=== PATIENT | female | born 2000 | race Caucasian/White ===

== ENCOUNTER → 2021-08-07 | Outpatient (CLI) | payer MEDICAID ==
[~2021-08-07] MED LIST: GADOTERATE 0.5 MMOL/ML (CLARISCAN) 15 ML VIAL IV ONE
--- NOTE | 2021-08-07 15:10 | Diagnostic Imaging Report ---
INDICATION: Followup abnormal findings within the left femur. EXAMINATION: MRI of the left lower extremity with and without contrast on 08/07/2021. COMPARISON: Outside MRI dated 06/19/2018 from [facility]. FINDINGS: Again seen is a predominantly T1 and T2 hypointense lesion abutting the posterior medial aspect of the mid femoral diaphysis. Measurements are similar to the previous exam, currently measuring 7.7 cm in cranial to caudal dimension and 1.1 x 0.7 cm on axial imaging. There is no cortical disruption. There is no surrounding soft tissue component. The remaining visualized osseous structures appear stable and unremarkable. There is no associated enhancement. Minimal adjacent overlying T2 hyperintensity is seen anterior to the lesion, stable from previous imaging. The visualized soft tissues are within normal limits. The visualized tendons are intact. The opposite visualized extremity is unremarkable. IMPRESSION: Stable predominantly hypointense lesion abutting the posterior medial cortex of the mid and distal femoral diaphysis. 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 This could be followed with radiographs to assure stability as clinically indicated. Dictated by: Dictated on workstation # [id number]
== END ==
LOC: EDBD 08:45 → RAD 08:45
PROVIDERS: ATTEND Pediatrics
DX: D49.2 Neoplasm of unspecified behavior of bone, soft tissue, and skin (principal); M86.8X5 Other osteomyelitis, thigh
CPT/HCPCS: 73720

== ENCOUNTER → 2021-11-28 | Outpatient (CLI) | payer MEDICAID ==
--- NOTE | 2021-11-28 10:46 | Diagnostic Imaging Report ---
PROCEDURE: US OB SINGLE FETUS <14 WKS. TECHNIQUE: Multiple real-time grayscale images were obtained over the gravid uterus in various projections. INDICATION: Reported subchorionic hematoma Intrauterine gestational sac is present with pole demonstrating crown-rump length of 2.2 cm. Embryonic cardiac activity is present with a rate of 172 bpm. There is an approximately 3.5 x 1.9 x 0.9 cm anechoic region adjacent to the gestational sac which likely represents implantation/subchorionic bleed. This involves less than 25% of gestational sac surface area. There is no evidence of maternal adnexal region abnormality. IMPRESSION: Intrauterine gestation with estimated age of 8 weeks and 6 days. Sonographic EDC is 07/04/2022. There is an approximately 3.5 x 1.9 x 0.9 cm subchorionic fluid collection which likely represents hematoma. This could be further assessed with short-term follow-up study to document stability and exclude enlargement. Dictated by: Dictated on workstation # [id number]
== END ==
LOC: RAD 10:00
PROVIDERS: ATTEND Obstetrics & Gynecology
DX: O46.8X1 Other antepartum hemorrhage, first trimester (principal); Z3A.08 8 weeks gestation of pregnancy
CPT/HCPCS: 76801

== ENCOUNTER → 2022-02-14 | Outpatient (CLI) | payer MEDICAID ==
--- NOTE | 2022-02-14 11:51 | Diagnostic Imaging Report ---
INDICATION: survey. TECHNIQUE: Multiple real-time grayscale images were obtained over the gravid uterus. COMPARISON: 11/28/2021. FINDINGS: There is a single live fetus in a cephalic presentation. heart rate was recorded at 142 bpm. Placenta is posterior and low-lying. Placental tip to the internal cervical os is approximately 3.2 cm. Amniotic fluid volume is normal. There does appear to be some funneling of the cervix, raising question of cervical incompetence. kidneys, bladder and stomach are unremarkable. brain is unremarkable. There is a 4 chamber heart. There is a three-vessel cord with normal insertion. spine is unremarkable. Biometrical measurements are as follows: Biparietal 4.81 cm, age 20 weeks 4 days. Head circumference 17.72 cm, age 20 weeks 2 days. Abdominal circumference 14.98 cm, age 20 weeks 2 days. Femur length 3.16 cm, age 19 weeks 6 days. Sonographic estimate age: 20 weeks 2 days. Sonographic estimated date of delivery: 07/02/2022. Estimated Weight: 331 gm (+/- 49 gm). LMP percentile: 21%. heart rate: 142 beats per minute. number: 1 of 1. IMPRESSION: 1. Single live IUP 20 weeks 2 days gestational age demonstrating normal interval growth when compared with prior exam. 2. Low-lying posterior placenta. 3. There does appear to be some cervical funneling, suggestive of cervical incompetence. Dictated by: Dictated on workstation # [id number]
== END ==
LOC: RAD 09:44
PROVIDERS: ATTEND Nurse Practitioner Women's Health
DX: O44.42 Low lying placenta NOS or without hemorrhage, second trimester (principal); Z3A.20 20 weeks gestation of pregnancy
CPT/HCPCS: 76805

== ENCOUNTER → 2022-02-18 | Outpatient (CLI) | payer MEDICAID ==
--- NOTE | 2022-02-18 16:44 | Diagnostic Imaging Report ---
INDICATION: Followup cervical length. Low-lying placenta. TECHNIQUE: Multiple real-time grayscale images were obtained over the gravid uterus. COMPARISON: 02/14/2022 FINDINGS: The cervix measures 3.8 cm in length and is closed. The placenta is posterior in position and the inferior tip of the placenta is 6 cm from the internal cervical os. The placenta cord originates from its cranial margin. Fetus is in cephalic presentation. Heart rate is 150 bpm. IMPRESSION: 1. Cervical length of 3.8 cm and there is no appreciable funneling. 2. No placenta previa. Dictated by: Dictated on workstation # [id number]
== END ==
LOC: RAD 12:45
PROVIDERS: ATTEND Obstetrics & Gynecology
DX: Z36.86 Encounter for antenatal screening for cervical length (principal)
CPT/HCPCS: 76816

== ENCOUNTER 2022-06-27 22:37 | Outpatient (CLI) | payer OTHER, MEDICAID ==
[~2022-06-27] VITALS: Ht 160 cm; Wt 66.3 kg
[2022-06-27 22:55] VITALS: BP 108/70
[2022-06-27 23:15] LABS: BACTERIA,URINE TRACE /HPF; BILIRUBIN,URINE NEGATIVE (NEGATIVE); CLARITY,URINE CLEAR; COLOR,URINE YELLOW; GLUCOSE, URINE (UA) NEGATIVE (NEGATIVE); KETONES,URINE NEGATIVE (NEGATIVE); LEUKOCYTE ESTERASE ,URINE NEGATIVE (NEGATIVE); NITRITE,URINE NEGATIVE (NEGATIVE); PROTEIN,URINE NEGATIVE (NEGATIVE); WBC,URINE 0-2 /HPF
[2022-06-27 23:25] VITALS: BP 105/60
[2022-06-27] MEDS ORDERED: PANT20TA18 PO (23:28)
[2022-06-27] MEDS ORDERED: PNV1TABL9 PO (23:28)
[2022-06-27] MEDS ORDERED: DOXY1TAB8 PO (23:28)
[2022-06-27 23:36] VITALS: BP 103/62
--- NOTE | 2022-06-28 09:54 | OB Triage Report ---
Standard Progress Note Progress Notes/Assess & Plan Date Seen by a Provider: Jun 27, 2022 Time Seen by a Provider: 23:48 Expected Date of Delivery: Jun 30, 2022 Gestational Age in Weeks: 39 Gestational Age in Days: 4 LMP/DOMINGO Comment: EDC 06/30/22. EGA 39 4/7 weeks Progress/Assessment & Plan [employer] Staff Technical Services Manager: Patient is @ 39 4/7 weeks who presented to L&D 06/27/22 in the evening for labor check. Cervix unchanged per RN at FT/long. Category I FHR tracing regular uterine contractions palpated as moderate. UA negative. VSS/AF. Patient released to home with routine labor/SROM and [facility]KC precautions. A/P: #1 39 weeks, contractions, not in labor -Home with routine labor precautions -Tylenol and Benadryl prn pain/insomnia -Follow up routine OB as scheduled, on L&D sooner prn. Final Diagnosis #1 39 weeks, Contractions, not in labor. LINDA ANAND DO Jun 28, 2022 09:54
== END 2022-06-27 23:48 | disposition home or self-care (01) ==
LOC: WSo 22:37 → LDRP 22:37 → WSo 23:48
PROVIDERS: ATTEND Obstetrics & Gynecology
DX: O47.1 False labor at or after 37 completed weeks of gestation (principal); Z3A.39 39 weeks gestation of pregnancy
CPT/HCPCS: 81000

== ENCOUNTER 2022-06-29 02:05 | Inpatient (IN) | payer OTHER, MEDICAID ==
[2022-06-29] VITALS (14 sets, daily range): BP systolic 94–137; BP diastolic 58–88
[~2022-06-29] VITALS: Ht 160 cm; Wt 65.8 kg
[~2022-06-29 02:05] MED LIST changes: +DOXY1TAB8 PO; -GADOTERATE 0.5 MMOL/ML (CLARISCAN) 15 ML VIAL IV ONE; +PANT20TA18 PO; +PNV1TABL9 PO
[2022-06-29] MEDS ORDERED: MINERAL OIL 30 ML UDC TOP PRN (02:45)
[2022-06-29] MEDS ORDERED: D5 LR IV SOLUTION 1,000 ML IV SCH (02:45)
[2022-06-29 02:47] LABS: BASOPHILS % (AUTO) 0 % (0-10); EOSINOPHILS % (AUTO) 0 % (0-10); HEMATOCRIT 37 % (35-52); HEMOGLOBIN 12.4 g/dL (11.5-16.0); LYMPHOCYTES # (AUTO) 2.3 10^3/uL (1.0-4.0); LYMPHOCYTES % (AUTO) 12 % (12-44); MEAN CORPUSCULAR HEMOGLOBIN 27 pg (25-34); MEAN CORPUSCULAR HGB CONC 33 g/dL (32-36); MEAN CORPUSCULAR VOLUME 82 fL (80-99); MEAN PLATELET VOLUME 11.9 fL (9.0-12.2); MONOCYTES % (AUTO) 5 % (0-12); NEUTROPHILS # (AUTO) 15.6 10^3/uL (1.8-7.8); NEUTROPHILS % (AUTO) 82 % (42-75); PLATELET COUNT 240 10^3/uL (130-400)
[2022-06-29] MEDS ORDERED: OXYTOCIN PRE-MIX DRIP 500 ML IV ONE ×3 (02:47→05:30)
[2022-06-29] MEDS ORDERED: D5 LR IV SOLUTION 1,000 ML IV ONE (02:48)
[2022-06-29] MEDS ORDERED: fentaNYL 2 mcg/ml BUPIVA 0.125 0 ML ONE (02:58)
[2022-06-29] MEDS ORDERED: NS (IVPB) 0 ML ONE (02:58)
[2022-06-29] MEDS ORDERED: LIDOCAINE 1% INJ 20 ML VIAL ONE (03:21)
[2022-06-29] MEDS ORDERED: BENZOCAINE/MENTHOL (DERMOPLAST) 56 ML CAN TP PRN (04:15)
[2022-06-29] MEDS ORDERED: NALOXONE 0.4 MG/ML 1 ML (NARCAN) VIAL IV PRN (04:15)
[2022-06-29] MEDS ORDERED: WITCH HAZEL(TUCKS) 40 EA JAR TOP PRN (04:15)
--- NOTE | 2022-06-29 04:28 | History & Physical-OB ---
OB - Chief Complaint & HPI Date/Time Date of Admission: Date of Admission: Jun 29, 2022 at 02:46 Date seen by a Provider: Jun 29, 2022 Time Seen by a Provider: 01:55 Chief Complaint/History OB-Reason for Admission/Chief: Onset of Labor Hx : 1 Hx Para: 0 Hx Last Menstrual Period: 09/23/21 Expected Date of Delivery: Jun 30, 2022 Gestational Age in Weeks: 39 Gestational Age in Days: 6 Admission Nurse Assessment Rev: No Other 22 y.o. EDC 06/30/22 @ 39 6/7 weeks admitted in advanced labor with cervical dilation at 7-8 cm at time of admission around 0230. Patient with SROM clear at 0155. Patient went on to have uncomplicated (see delivery note). PNC: MSAFP multiple markers negative, GERD (Protonix) PMH: Neg PSH: Neg SHx: Neg for smoking/ETOH/Rx/STI Meds: APAP, Protonix during NKDA ROS negative for all major systems (HEENT, CV, Respiratory, GI/, Skin, MN/NM) LABS: MBT B POS PNAS NEG VDRL NR HIV NR GC/CT NEG X 2 RUBELLA IMMUNE TSH WNL AT 1.88 HCV NEG 1 HR GLUCOLA 129 GBS NEG Allergies and Home Medications Allergies Coded Allergies: No Known Drug Allergies (Unverified , 08/07/21) Patient Home Medication List Home Medication List Reviewed: Yes Doxylamine Succinate/Vit B6 (Doxylamine-Pyridoxine 10-10 mg) 10 Mg-10 Mg T ablet., 1 EACH PO, (Reported) Entered as Reported by: BIANCA BOO on 06/27/222327 Pantoprazole Sodium (Pantoprazole Sodium) 20 Mg Tablet.dr, 20 MG PO DAILY, (Reported) Entered as Reported by: BIANCA BOO on 06/27/222327 Pnv Cmb#21/Iron/Folic Acid ( Complete Caplet) 14 Mg Iron-400 Mcg Tablet, 1 EACH PO, (Reported) Entered as Reported by: BIANCA BOO on 06/27/222327 OB - History Hx of Present Care: Yes Patient Past Medical History see HPI Social History/Family History 2nd Hand Smoke Exposure: No OB - Admission Exam Physical Exam HEENT: TMs Normal Heart: Rhythm Normal Lungs: Clear Abdomen: Gravid Extremities: Normal Reflexes: Normal Cervical Dilatation: 10cm Effacement: 100% Station: +2 Membranes: Ruptured Amniotic Fluid: Clear Heart Rate: 140's Accelerations: Accelerations Present Decelerations: No Decelerations Short Term Variability: Present Mcc Variability: Average (6-25) Contractions on Admission: < 5 Minutes Apart Frequency of Contractions: Q2-3 MINUTES Duration: 1 MINUTE Intensity: Firm Labs Laboratory Tests Test 06/29/22 02:30 Range/Units White Blood Count 19.0 H 4.3-11.0 10^3/uL Red Blood Count 4.57 3.80-5.11 10^6/uL Hemoglobin 12.4 11.5-16.0 g/dL Hematocrit 37 35-52 % Mean Corpuscular Volume 82 80-99 fL Mean Corpuscular Hemoglobin 27 25-34 pg Mean Corpuscular Hemoglobin Concent 33 32-36 g/dL Red Cell Distribution Width 13.0 10.0-14.5 % Platelet Count 240 130-400 10^3/uL Mean Platelet Volume 11.9 9.0-12.2 fL Immature Granulocyte % (Auto) 0 % Neutrophils (%) (Auto) 82 H 42-75 % Lymphocytes (%) (Auto) 12 12-44 % Monocytes (%) (Auto) 5 0-12 % Eosinophils (%) (Auto) 0 0-10 % Basophils (%) (Auto) 0 0-10 % Neutrophils # (Auto) 15.6 H 1.8-7.8 10^3/uL Lymphocytes # (Auto) 2.3 1.0-4.0 10^3/uL Monocytes # (Auto) 1.0 0.0-1.0 10^3/uL Eosinophils # (Auto) 0.0 0.0-0.3 10^3/uL Basophils # (Auto) 0.0 0.0-0.1 10^3/uL Immature Granulocyte # (Auto) 0.1 0.0-0.1 10^3/uL OB - Assessment/Plan/Diagnosis Assessment Assessment: active labor Admission Dx #1: 39 WEEKS, ACTIVE LABOR -Routine orders Admission Status: Inpatient Order (span 2 midnights) Reason for Inpatient Admission: Labor at term Plan Plan: Expectant Management LINDA ANAND DO Jun 29, 2022 04:28
--- NOTE | 2022-06-29 04:44 | OB Labor & Delivery Record ---
Vag Delivery Note Vag Delivery Note Date of Delivery: 06/29/22 Preoperative Diagnosis: Awa Jung is a (22 /Para 1 / 0,Gestational Age (wks)39with [] Postoperative Diagnosis: Same Surgeon: LINDA ANAND Bottle Hop: [] Anesthesia: [] Delivery Type: [] Findings: [] Viable [] , apgars [], weight [] Lacerations: Intact placenta with 3 vessel cord. No nuchal cord, body cord or shoulder dystocia Cytotec 800 mcg placed for hemorrhage prophylaxis Estimated Blood Loss: [] ml Complications: None Condition: Stable Description of Procedure: The patient is a 22 year old female who presented []. She was admitted and informed consent was obtained. Her labor course was remarkable for [] She progressed to complete dilatation and began to push. She was then set up for delivery. The infant's head was delivered atraumatically in the [] position. The shoulders and remainder of the 's body were then delivered without difficulty. Upon delivery, the head was held below the level of the perineum and the mouth and nares were bulb suctioned. The cord was doubly clamped and cut and the was handed off to the pediatric staff. An intact placenta with 3-vessel cord delivered via Gil and there was found to be minimal bleeding.~ Vigorous fundal massage was performed and the fundus was found to be firm. IV oxytocin was given. Examination of the vagina and perineum revealed a [] laceration repaired in the usual fashion with 3-0 vicryl suture. Following the repair, sponge, instrument and needle counts were correct. Mom and baby were both in stable condition in the labor suite. Vitals - Labs Vital Signs - I&O DELIVERY NOTE: COMPLETE: 0258 BABY: 0332 PLACENTA: 0335 Lacerations: 1st degree perineal laceration EBL: 300 ML Findings: Delivery productive of viable male infant born at 0332 hours with 8/9 Comments: After baby delivered, placed on maternal abdomen, delayed cord clamp and cut at 1 minute. IV Pitocin rapid infusion started. Placenta delivered spontaneously and intact. canal inspected and cervix, and perirethral area free of lacerations. 1st degree perineal laceration repaired with 3-0 Vicryl in layers in routine fashion. Uterus massaged multiple times during period and firm. All sponge counts correct. Mother and baby doing well. Labs Laboratory Tests 06/29/22 02:30: White Blood Count 19.0H, Red Blood Count 4.57, Hemoglobin 12.4, Hematocrit 37, Mean Corpuscular Volume 82, Mean Corpuscular Hemoglobin 27, Mean Corpuscular Hemoglobin Concent 33, Red Cell Distribution Width 13.0, Platelet Count 240, Mean Platelet Volume 11.9, Immature Granulocyte % (Auto) 0, Neutrophils (%) (Auto) 82H, Lymphocytes (%) (Auto) 12, Monocytes (%) (Auto) 5, Eosinophils (%) (Auto) 0, Basophils (%) (Auto) 0, Neutrophils # (Auto) 15.6H, Lymphocytes # (Auto) 2.3, Monocytes # (Auto) 1.0, Eosinophils # (Auto) 0.0, Basophils # (Auto) 0.0, Immature Granulocyte # (Auto) 0.1 LINDA ANAND DO Jun 29, 2022 04:44
[2022-06-29] MEDS ORDERED: OXYTOCIN PRE-MIX DRIP 500 ML IV SCH ×2 (05:15)
[2022-06-29] MEDS ORDERED: LIDOCAINE 1% INJ 20 ML VIAL INJ ONE (05:15)
[2022-06-29] MEDS: ACETAMINOPHEN 500 MG TAB (TYLENOL) PO SCH ×3 (05:19→23:16)
[2022-06-29] MEDS ORDERED: CATHETER FLUSH 10 ML SYR IV SCH ×2 (06:00)
[2022-06-29] MEDS: IBUPROFEN 600 MG (MOTRIN) TAB PO PRN ×3 (06:36→21:28)
--- NOTE | 2022-06-29 19:17 | Short Stay Summary ---
Discharge Summary Hospital Course Was the Problem List Reviewed?: Yes Problems/Dx: (1) Uterine contractions Status: Resolved Assessment & Plan: Patient doing well evening of delivery. No complaints, tolerating diet, ambulating, and denies heavy bleeding. EBL from delivery only 300 ML. Declines any discharge meds. Will follow up with Dr. Constantino 6 weeks . Final Diagnosis: State Hospital Course Date of Admission: Jun 29, 2022 at 02:46 Admission Diagnosis : Family Physician/Provider: Anirudh Roberson DO Date of Discharge: 06/29/22 Discharge Diagnosis: [Contractions, state ] Hospital Course: [ Patient admitted in advanced labor at 7-8 cm dilation, delivered 06/29/22 at 0332 hours viable male with 8/9 over first degree perineal lacera tion. EBL 300 ML. Uncomplicated course. Will follow up with Dr. Constantino 6 weeks .] Labs and Pending Lab Test: Laboratory Tests 06/29/22 02:30: White Blood Count 19.0H, Red Blood Count 4.57, Hemoglobin 12.4, Hematocrit 37, Mean Corpuscular Volume 82, Mean Corpuscular Hemoglobin 27, Mean Corpuscular Hemoglobin Concent 33, Red Cell Distribution Width 13.0, Platelet Count 240, Mean Platelet Volume 11.9, Immature Granulocyte % (Auto) 0, Neutrophils (%) (Auto) 82H, Lymphocytes (%) (Auto) 12, Monocytes (%) (Auto) 5, Eosinophils (%) (Auto) 0, Basophils (%) (Auto) 0, Neutrophils # (Auto) 15.6H, Lymphocytes # (Auto) 2.3, Monocytes # (Auto) 1.0, Eosinophils # (Auto) 0.0, Basophils # (Auto) 0.0, Immature Granulocyte # (Auto) 0.1, Syphilis Serology [Pending] Home Meds Active Reported Doxylamine-Pyridoxine 10-10 mg (Doxylamine Succinate/Vit B6) 10 Mg-10 Mg Tablet.dr 1 Each PO Pantoprazole Sodium 20 Mg Tablet.dr 20 Mg PO DAILY Complete Caplet (Pnv Cmb#21/Iron/Folic Acid) 14 Mg Iron-400 Mcg Tablet 1 Each PO Assessment/Pt Instructions Follow up with Dr. Constantino 6 weeks . Vaginal rest x 6 weeks. Discharge Instructions Discharge Diet: No Restrictions Activity as Tolerated: Yes Discharge Physical Examination General Appearance: Alert, Oriented X3 HEENT: Mucous Memb Moist/Hustler Cardiovascular: Regular Rate Abdominal: No Tenderness Skin: No Rashes Neuro: Normal Gait Psych/Mental Status: Mental Status NL Allergies: Coded Allergies: No Known Drug Allergies (Unverified , 08/07/21) Discharge Summary Date of Admission Jun 29, 2022 at 02:46 Date of Discharge 06/30/22 Discharge Date: Jun 30, 2022 Discharge Time: 09:00 Admission Diagnosis Contractions Term Consults/Procedures Consulations None Procedures Spontaneous vaginal delivery Discharge Diagnosis Contractions, delivered state, vaginal delivery LINDA ANAND DO Jun 29, 2022 19:17
[2022-06-29] MEDS: DOCUSATE SODIUM 100 MG (COLACE) CAP PO SCH (20:22)
[2022-06-30 00:15] VITALS: BP 99/55
[2022-06-30] MEDS: IBUPROFEN 600 MG (MOTRIN) TAB PO PRN (03:21)
[2022-06-30 04:45] VITALS: BP 106/58
[2022-06-30 05:53] LABS: BASOPHILS % (AUTO) 0 % (0-10); EOSINOPHILS # (AUTO) 0.2 10^3/uL (0.0-0.3); EOSINOPHILS % (AUTO) 2 % (0-10); HEMATOCRIT 27 % (35-52); HEMOGLOBIN 8.8 g/dL (11.5-16.0); LYMPHOCYTES # (AUTO) 3.4 10^3/uL (1.0-4.0); LYMPHOCYTES % (AUTO) 28 % (12-44); MEAN CORPUSCULAR HEMOGLOBIN 27 pg (25-34); MEAN CORPUSCULAR HGB CONC 33 g/dL (32-36); MEAN CORPUSCULAR VOLUME 83 fL (80-99); MEAN PLATELET VOLUME 11.5 fL (9.0-12.2); MONOCYTES # (AUTO) 0.8 10^3/uL (0.0-1.0); MONOCYTES % (AUTO) 6 % (0-12); NEUTROPHILS # (AUTO) 7.6 10^3/uL (1.8-7.8); NEUTROPHILS % (AUTO) 63 % (42-75); PLATELET COUNT 176 10^3/uL (130-400)
--- NOTE | 2022-06-30 08:02 | Progress Note ---
Standard Progress Note Progress Notes/Assess & Plan Date Seen by a Provider: Jun 30, 2022 Time Seen by a Provider: 08:01 Progress/Assessment & Plan Patient is ambulating, voiding, tolerating oral intake well and has good pain control. Patient denies chest pain, denies shortness of breath, denies nausea and vomiting, and denies headache. Vital Signs Date Time Temp Pulse Resp B/P (MAP) Pulse Ox O2 Delivery O2 Flow Rate FiO2 06/30/22 04:45 36.7 82 18 106/58 (74) 97 Room Air 06/30/22 00:15 36.8 87 18 99/55 (70) 96 Room Air 06/29/22 20:19 36.5 91 16 111/58 (75) 97 Room Air 06/29/22 15:15 36.3 82 18 106/64 (78) 98 Room Air Vital signs are stable. Patient is afebrile. Fundus is firm below the umbilicus and nontender. Extremities show no clubbing or cyanosis. There is no Homans' sign. Pelvic exam was deferred Assessment and plan day #1 status post spontaneous vaginal delivery. Patient is doing well and can be discharged home today or tomorrow as she prefers GILA GERARDO MD Jun 30, 2022 08:02
[2022-06-30 08:34] VITALS: BP 114/62
[2022-06-30] MEDS: DOCUSATE SODIUM 100 MG (COLACE) CAP PO SCH (08:34)
[2022-06-30] MEDS: ACETAMINOPHEN 500 MG TAB (TYLENOL) PO SCH (08:34)
== END 2022-06-30 14:30 | disposition home or self-care (01) | DRG 807 ==
LOC: WSo 02:05 → LDRP 02:05 → WSo 02:46 → LDRP 02:46
PROVIDERS: ADMIT Obstetrics & Gynecology; ATTEND Obstetrics & Gynecology
PROC: 10E0XZZ Delivery of Products of Conception, External Approach (ICD-10-PCS; principal; 2022-06-29)
PROC: 0HQ9XZZ Repair Perineum Skin, External Approach (ICD-10-PCS; 2022-06-29)
DX: O99.62 Diseases of the digestive system complicating childbirth (principal); Z37.0 Single live birth; Z3A.39 39 weeks gestation of pregnancy; O70.0 First degree perineal laceration during delivery; K21.9 Gastro-esophageal reflux disease without esophagitis; Z79.899 Other long term (current) drug therapy
CPT/HCPCS: 36415; 85025; 86780; 86850; 86900; 86901; 99212